=== PATIENT | female | born 1990 | race Caucasian/White ===

== ENCOUNTER → 2021-03-30 08:51 | Outpatient (CLI) | payer MEDICAID, SELFPAY | PROVIDERS: Visit Provider Obstetrics & Gynecology | DX: Z34.90 Encounter for supervision of normal pregnancy, unspecified, unspecified trimester (principal) | CPT/HCPCS: 36415; 84702 ==

== ENCOUNTER → 2021-04-06 14:02 | Outpatient (CLI) | payer MEDICAID, SELFPAY ==
--- NOTE | 2021-04-06 14:02 | US_ITS ---
PROCEDURE: US OB <= 14 WEEKS FETUS CLINICAL INDICATION: Dates Evaluate gestational age COMPARISON: No exams were available for comparison FINDINGS: There is a twin gestation. Twin a is anterior and twin B posterior. Fetus a has a crown-rump length 3.64 cm correlating to gestational age of 10 weeks 4 days. heart tones are present 157 beats per minute. Fetus B is more posterior and has a crown-rump length of 3.57 cm with a gestational age of 10 weeks 4 days and heart tones of 146 beats minute. There does appear to be 2 gestational sacs and 2 placentas. There are small bilateral ovarian follicles. Estimated due date by ultrasound is 10/29/2021 IMPRESSION: Live twin gestation at 10 weeks 4 days Estimated due date by Ultrasound is 10/29/2021 Dictated by: Lee Dickey MD 04/06/2021 17:21 Lee Dickey MD in [facility] 04/06/2021 17:21
== END ==
PROVIDERS: PCP Obstetrics & Gynecology; Visit Provider Obstetrics & Gynecology
DX: Z34.90 Encounter for supervision of normal pregnancy, unspecified, unspecified trimester (principal)
CPT/HCPCS: 76801

== ENCOUNTER → 2021-05-03 12:58 | Outpatient (CLI) | payer MEDICAID, SELFPAY ==
--- NOTE | 2021-05-03 12:59 | US_ITS ---
PROCEDURE: US OB <= 14 WEEKS FETUS CLINICAL INDICATION: cervical length assess COMPARISON: US US OB <= 14 WEEKS FETUS from 04/06/2021 FINDINGS: The cervix is closed and measures 4 cm in length. The is dichorionic, diamniotic There is a twin gestation present. Fetus fetus A is cephalic and on the left at this time. heart tones are noted within FHR 142 BPM. The placenta is anterior and does appear to cover the cervical os consistent with placenta previa. Average ultrasound age of twin a is 14 weeks 3 days. BPD 14 weeks 4 days, OFD 14 weeks 3 days, HC 14 weeks 2 days, AC 14 weeks 3 days, FL 14 weeks 2 days. All parameters correlate. Normally amniotic fluid appearance Fetus B is breech and on the right at this time. The placenta of fetus B is posterior. Normal amount of amniotic fluid. Average ultrasound age of fetus B is 14 weeks 3 days. BPD 14 weeks 4 days, OFD 14 weeks 3 days, HC 14 weeks 2 days, AC 14 weeks 3 days, FL 14 weeks 2 days. heart tones are at 1:36 BPM. All parameters correlate IMPRESSION: Live twin gestation at 14 weeks 3 days. Please see above for detail. This exam does not constitute an anatomy exam. Dictated by: Lee Dickey MD 05/03/2021 16:50 Lee Dickey MD in [facility] 05/03/2021 16:50
== END ==
PROVIDERS: PCP Obstetrics & Gynecology; Visit Provider Obstetrics & Gynecology
DX: Z34.90 Encounter for supervision of normal pregnancy, unspecified, unspecified trimester (principal)
CPT/HCPCS: 76801

== ENCOUNTER → 2021-05-17 16:49 | Outpatient (CLI) | payer MEDICAID, SELFPAY ==
[2021-05-17 17:50] LABS: Basophils % 0.4 % (0.1-2.0); Eosinophils # 0.1 K/mm3 (0.0-0.4); Eosinophils % 0.5 % (0.1-12.0); Hematocrit 37.3 % (37.0-47.0); Hemoglobin 12.5 g/dL (12.2-16.2); Lymphocytes # 2.8 K/mm3 (0.7-4.5); Lymphocytes % 24.8 % (10-50); Mean Corpuscular HGB Conc 33.5 g/dL (31.8-35.4); Mean Corpuscular Hemoglobin 28.8 pg (27.0-31.2); Mean Platelet Volume 7.5 fl (7.4-10.4); Monocytes # 0.3 K/mm3 (0.1-1.0); Monocytes % 2.3 % (1.7-9.3); Neutrophils # 8.1 K/mm3 (1.8-7.8); Platelet Count 364 K/mm3 (142-424); Red Blood Count 4.34 M/mm3 (4.20-5.40); White Blood Count 11.3 K/mm3 (4.8-10.8)
[2021-05-19 05:30] LABS: HIV Screen 4th Generation wRfx Non Reactive (Non Reactive)
[2021-05-19 10:25] LABS: Hepatitis B Surface Antigen Negative (Negative); Hepatitis C Antibody <0.1 s/co ratio (0.0-0.9); Rubella Antibodies, IgG 1.07 index (Immune >0.99)
[2021-05-19 13:31] LABS: Rapid Plasma Reagin Ab Titer Non Reactive (NonRea<1:1)
== END ==
PROVIDERS: Visit Provider Obstetrics & Gynecology
DX: Z34.90 Encounter for supervision of normal pregnancy, unspecified, unspecified trimester (principal)
CPT/HCPCS: 36415; 85025; 86592; 86703; 86762; 86850; 87340; 87380; G0432

== ENCOUNTER → 2021-06-15 13:43 | Outpatient (CLI) | payer MEDICAID, SELFPAY ==
--- NOTE | 2021-06-15 13:50 | US_ITS ---
PROCEDURE: US OB >= 14 WEEKS FETUS CLINICAL INDICATION: twins anatomy scan COMPARISON: US US OB <= 14 WEEKS FETUS from 05/03/2021 FINDINGS: There is a twin gestation. heart tones are noted in movement of both fetuses. The cervix is closed measuring 4 cm in length. Baby a: Cephalic position, maternal right. Heart rate 158 beats per minute. There is an anterior placenta low lying but no obvious previa. Twin A Complete survey performed and was unremarkable on the submitted images as in PACS. No discrete anomalies identified on survey imaging by technologist. Active fetus. Three-vessel cord with satisfactory umbilical cord insertion. 4- chamber heart noted. Survey of brain & ventricles Unremarkable. Face and neck survey unremarkable. Diaphragm and chest views unremarkable. Abdomen: Both kidneys noted and unremarkable. Stomach noted and satisfactory. Spine: Survey of the spine satisfactory with no anomalies identified nor imaged. Both arms and legs noted. Amniotic Fluid: Adequate. Maternal adnexa: No significant findings. Measurements: Average ultrasound age 20weeks 3days. Gestational Age 20weeks 4days Estimated due date by ultrasound age 1210/30/2021. Estimated weight 358g BPD = 20weeks 3days OFD = 20weeks 5days HC = 19weeks 6days AC = 20weeks 4days FL = 20weeks 5days Growth Percentile= 41Percent% Heart Rate = 158bpm Cerebellum = 20weeks 6days Humerus = 20weeks 4days HC/AC is 1.13 CI is 0.77 FL/BPD is 0.71 FL/AC is 0.22 Twin B: Twin B is in breech position and maternal left the with a posterior placenta. Complete survey performed and was unremarkable on the submitted images as in PACS. No discrete anomalies identified on survey imaging by technologist. Active fetus. Three-vessel cord with satisfactory umbilical cord insertion. 4- chamber heart noted. Survey of brain & ventricles Unremarkable. Face and neck survey unremarkable. Diaphragm and chest views unremarkable. Abdomen: Both kidneys noted and unremarkable. Stomach noted and satisfactory. Spine: Survey of the spine satisfactory with no anomalies identified nor imaged. Both arms and legs noted. Amniotic Fluid: Adequate. Average ultrasound age is 20 weeks 4 days. BPD 20 weeks 4 days, OFD 20 weeks 5 days, HC 19 weeks 6 days, AC 20 weeks 6 days, FL 20 weeks 6 days, cerebellum 20 weeks 5 days,. All parameters correlate. Estimated weight is 371 g which is 52 percentile. IMPRESSION: Dichorionic diamniotic twin gestation with an average ultrasound age of 20 weeks 3 days/20 weeks 4 days. No obvious anomalies. All parameters correlate. Please see above for detail. Dictated by: Lee Dickey MD 06/16/2021 08:56 Lee Dickey MD in [facility] 06/16/2021 08:58
== END ==
PROVIDERS: PCP Family Medicine; Visit Provider Obstetrics & Gynecology
DX: Z34.90 Encounter for supervision of normal pregnancy, unspecified, unspecified trimester (principal)
CPT/HCPCS: 76805; 76810

== ENCOUNTER → 2021-08-09 15:08 | Outpatient (CLI) | payer MEDICAID, SELFPAY ==
[2021-08-09 15:23] LABS: Fetal Membrane Rupture (Rapid) Positive (Negative)
== END ==
PROVIDERS: Visit Provider Obstetrics & Gynecology
DX: Z34.90 Encounter for supervision of normal pregnancy, unspecified, unspecified trimester (principal)
CPT/HCPCS: 84112